=== PATIENT | female | born 1950 | race Caucasian/White ===

== ENCOUNTER 2017-05-16 08:58 | Inpatient (IN) | payer MEDICARE, OTHER ==
[2017-05-13 11:43] LABS: BLOOD UREA NITROGEN 13 mg/dL (7-18)
[2017-05-13 11:47] LABS: ASPARTATE AMINO TRANSFERASE 17 U/L (15-37)
[~2017-05-16] VITALS: Ht 160 cm; Wt 77.6 kg
[~2017-05-16 08:58] MED LIST: AMLO5TAB2 PO; ASPI-496 PO; CHOL2000 PO; CYAN50003 PO; KRIL1CAP19 PO; LACT1CAP35 PO; LEVO100T5 PO; LOSA50TA6 PO; MAGN400T7 PO; NIAC500T9 PO; PRAV20TA2 PO; UBID100C24 PO; VITA150T PO
[2017-05-16] MEDS ORDERED: LACTATED RINGERS 1,000 ML IV SCH (09:33)
[2017-05-16] MEDS ORDERED: LIDOCAINE 1%, 2ML ONE (09:40)
[2017-05-16] MEDS ORDERED: LIDOCAINE 1%, 2ML SQ PRN (10:00)
[2017-05-16] MEDS ORDERED: EPINEPHRINE 1 MG/ML, 1ML ONE (10:17)
[2017-05-16] MEDS ORDERED: BUPIVACAINE/PF 0.5% ONE ×2 (10:17→11:40)
[2017-05-16] MEDS ORDERED: MIDAZOLAM 1 MG/ML, 2ML ONE (11:12)
[2017-05-16] MEDS ORDERED: FENTANYL PF 100 MCG/2ML ONE ×3 (11:12→14:28)
[2017-05-16] MEDS ORDERED: SUCCINYLCHOLINE 20 MG/ML, 10ML ONE (12:06)
[2017-05-16] MEDS ORDERED: ONDANSETRON 2MG/ML, 2ML ONE ×2 (12:06→14:29)
[2017-05-16] MEDS ORDERED: ROCURONIUM 10 MG/ML ONE (12:06)
[2017-05-16] MEDS ORDERED: CEFAZOLIN 1,000 MG ONE (12:06)
[2017-05-16] MEDS ORDERED: PROPOFOL 10 MG/ML, 20ML ONE (12:06)
[2017-05-16] MEDS ORDERED: DEXAMETHASONE 4 MG/ML, 1ML ONE (12:06)
[2017-05-16] MEDS ORDERED: METOPROLOL 1 MG/ML, 5ML IV PRN (13:00)
[2017-05-16] MEDS ORDERED: hydrALAzine 20 MG/ML, 1ML IV PRN ×2 (13:00→17:00)
[2017-05-16] MEDS ORDERED: ACETAMINOPHEN 325 MG TABLET PO PRN ×2 (13:00→17:00)
[2017-05-16] MEDS ORDERED: OXYcodone 5 MG/5 ML ORAL.SOL UDC PO PRN (13:00)
[2017-05-16] MEDS ORDERED: ALBUTEROL SULFATE 2.5 MG/3 ML NPPB PRN (13:00)
[2017-05-16] MEDS ORDERED: HYDROcodone/APAP 7.5-325MG/15ML UDC PO PRN (13:00)
[2017-05-16] MEDS ORDERED: MEPERIDINE/PF 25MG/0.5ML IVPush PRN (13:00)
[2017-05-16] MEDS ORDERED: MIDAZOLAM 1 MG/ML, 2ML IV PRN (13:00)
[2017-05-16] MEDS ORDERED: PROMETHAZINE 25 MG/ML, 1ML IV PRN (13:00)
[2017-05-16] MEDS ORDERED: ONDANSETRON 2MG/ML, 2ML IVPush PRN (13:00)
[2017-05-16] MEDS ORDERED: EPHEDRINE 50 MG/ML, 1ML IVPush PRN (13:00)
[2017-05-16] MEDS ORDERED: OXYcodone 5 MG/5 ML ORAL.SOL UDC ONE (14:29)
[2017-05-16] MEDS ORDERED: ACETAMINOPHEN 325 MG TABLET ONE (14:29)
[2017-05-16] MEDS: FENTANYL PF 100 MCG/2ML IV PRN ×2 (14:36→15:00)
[2017-05-16] MEDS ORDERED: HYDROmorphone 2 MG/ML, 1ML ONE (14:45)
[2017-05-16] MEDS: HYDROmorphone 1 MG/ML, 1ML IV PRN ×4 (14:48→15:19)
[2017-05-16] MEDS ORDERED: LABETALOL 5MG/ML, 20ML ONE (15:00)
[2017-05-16] MEDS: LABETALOL 5MG/ML, 20ML IV PRN ×2 (15:02→15:26)
[2017-05-16] MEDS ORDERED: PROMETHAZINE 25 MG/ML, 1ML ONE (15:22)
[2017-05-16] MEDS ORDERED: HOMEMED SHEET MC SCH (16:30)
[2017-05-16] MEDS ORDERED: ONDANSETRON 2MG/ML, 2ML IV PRN (17:00)
[2017-05-16] MEDS ORDERED: ACETAMINOPHEN 650 MG SUPP PR PRN (17:00)
[2017-05-16] MEDS ORDERED: HYDROcodone/APAP 5/325 TABLET PO PRN (17:00)
[2017-05-16] MEDS: POTASSIUM CHLORIDE 20 MEQ in D5%-0.45% NACL 1,000 ML IV SCH (20:02)
[2017-05-16] MEDS: SODIUM CHLORIDE FLUSH 10ML SYR IVF SCH (20:09)
[2017-05-16 21:00] VITALS: BP 114/73
[2017-05-16] MEDS: LOSARTAN 25MG TABLET PO SCH (21:48)
[2017-05-16] MEDS: PRAVASTATIN 20 MG TABLET PO SCH (21:48)
[2017-05-16] MEDS: CALCIUM/VITAMIN D3 250-125 TABLET PO SCH (21:48)
[2017-05-17 00:06] VITALS: BP 124/69
[2017-05-17] MEDS: POTASSIUM CHLORIDE 20 MEQ in D5%-0.45% NACL 1,000 ML IV SCH ×3 (05:16→22:27)
[2017-05-17] MEDS: LEVOTHYROXINE 137 MCG TABLET PO SCH (05:18)
[2017-05-17 05:48] VITALS: BP 105/69
[2017-05-17 06:38] LABS: PTH INTACT INTERPRETATION ** Comment **
[2017-05-17 07:30] LABS: PARATHYROID HORMONE INTACT < 2.5 pg/mL (14-72)
[2017-05-17 07:32] VITALS: BP 112/73
[2017-05-17] MEDS: MAGNESIUM OXIDE 400 MG TABLET PO SCH (08:59)
[2017-05-17] MEDS: LOSARTAN 25MG TABLET PO SCH ×2 (08:59→20:53)
[2017-05-17] MEDS: CALCIUM/VITAMIN D3 250-125 TABLET PO SCH ×3 (09:00→20:53)
[2017-05-17] MEDS: AMLODIPINE 5 MG TABLET PO SCH (09:00)
[2017-05-17] MEDS: CYANOCOBALAMIN 1,000 MCG TABLET PO SCH (09:00)
[2017-05-17] MEDS: CHOLECALCIFEROL 1,000 UNIT TABLET PO SCH (09:00)
[2017-05-17] MEDS: SODIUM CHLORIDE FLUSH 10ML SYR IVF SCH ×2 (09:15→20:52)
[2017-05-17] MEDS ORDERED: CALCIUM GLUCONATE 4.6 MEQ in SODIUM CHLORIDE 0.9% 50 ML IV ONE (10:00)
[2017-05-17] MEDS: CALCITRIOL 0.5 MCG CAPSULE PO SCH ×2 (10:39→20:53)
[2017-05-17] MEDS ORDERED: KETOROLAC 30 MG/1 ML ONE (16:11)
[2017-05-17] MEDS: KETOROLAC 30 MG/1 ML IVPush SCH ×2 (16:16→22:28)
[2017-05-17] MEDS ORDERED: DIPHENHYDRAMINE 25 MG CAPSULE PO PRN (16:30)
[2017-05-17 20:05] VITALS: BP 107/67
[2017-05-17] MEDS: PRAVASTATIN 20 MG TABLET PO SCH (20:53)
[2017-05-18 01:55] VITALS: BP 117/71
[2017-05-18] MEDS: KETOROLAC 30 MG/1 ML IVPush SCH (04:30)
[2017-05-18] MEDS: LEVOTHYROXINE 137 MCG TABLET PO SCH (05:51)
[2017-05-18] MEDS ORDERED: CALCIUM GLUCONATE 4.6 MEQ in SODIUM CHLORIDE 0.9% 50 ML IV ONE (07:30)
[2017-05-18 07:48] VITALS: BP 121/80
[2017-05-18] MEDS: AMLODIPINE 5 MG TABLET PO SCH (08:35)
[2017-05-18] MEDS: CALCITRIOL 0.5 MCG CAPSULE PO SCH (08:35)
[2017-05-18] MEDS: MAGNESIUM OXIDE 400 MG TABLET PO SCH (08:36)
[2017-05-18] MEDS: CYANOCOBALAMIN 1,000 MCG TABLET PO SCH (08:36)
[2017-05-18] MEDS: CHOLECALCIFEROL 1,000 UNIT TABLET PO SCH (08:36)
[2017-05-18] MEDS: LOSARTAN 25MG TABLET PO SCH (08:36)
[2017-05-18] MEDS ORDERED: CALCIUM/VITAMIN D3 250-125 TABLET PO SCH (09:00)
[2017-05-18] MEDS ORDERED: KETOROLAC 30 MG/1 ML ONE (09:12)
[2017-05-18] MEDS: SODIUM CHLORIDE FLUSH 10ML SYR IVF SCH (09:16)
[2017-05-18] MEDS: KETOROLAC 30 MG/1 ML IVPush PRN ×2 (09:16→14:48)
[2017-05-18] MEDS ORDERED: HYDR-3240 PO (13:29)
[2017-05-18] MEDS ORDERED: CALC-118 PO ×2 (13:30→15:30)
[2017-05-18] MEDS ORDERED: CALC0.5C2 PO ×2 (13:32→13:38)
[2017-05-18] MEDS ORDERED: LEVO137T2 PO (13:33)
[2017-05-18 13:48] VITALS: BP 121/80
== END 2017-05-18 15:40 | disposition home or self-care (01) | DRG 626 ==
LOC: OUT 08:58 → 4NOR 15:32 → OUT 17:08 → DCLOUNGE 05-18 15:25
PROVIDERS: ADMIT Surgery; ATTEND Surgery
PROC: 07B20ZX Excision of Left Neck Lymphatic, Open Approach, Diagnostic (ICD-10-PCS; 2017-05-16)
PROC: 07B10ZX Excision of Right Neck Lymphatic, Open Approach, Diagnostic (ICD-10-PCS; 2017-05-16)
PROC: 4A11X4G Monitoring of Peripheral Nervous Electrical Activity, Intraoperative, External Approach (ICD-10-PCS; 2017-05-16)
PROC: 0GTK0ZZ Resection of Thyroid Gland, Open Approach (ICD-10-PCS; principal; 2017-05-16 11:30)
DX: C73 Malignant neoplasm of thyroid gland (principal); E44.1 Mild protein-calorie malnutrition; I10 Essential (primary) hypertension; E83.51 Hypocalcemia; G89.29 Other chronic pain; E04.2 Nontoxic multinodular goiter; M54.9 Dorsalgia, unspecified; Z80.8 Family history of malignant neoplasm of other organs or systems; Z84.89 Family history of other specified conditions; Z90.49 Acquired absence of other specified parts of digestive tract; Z90.12 Acquired absence of left breast and nipple; Z88.8 Allergy status to other drugs, medicaments and biological substances; Z80.3 Family history of malignant neoplasm of breast; Z83.3 Family history of diabetes mellitus; Z82.49 Family history of ischemic heart disease and other diseases of the circulatory system
CPT/HCPCS: 36415; 80053; 82306; 82310; 82330; 83735; 83970; 88305; 88307; 88341; 88342; 93005; J0171; J0610; J0690; J1100; J1170; J1885; J2250; J2405; J2550; J2704; J3010; J3480; J3490; C1760; G0461; J0330; J7120; Q0163